=== PATIENT | female | born 1950 | race Caucasian/White ===

== ENCOUNTER 2022-04-18 20:17 | Emergency (ER) | payer MEDICARE ==
[2022-04-18] MEDS ORDERED: Lidocaine 1% 5 ML VIAL INJECT ONE (20:32)
[2022-04-18] MEDS ORDERED: Diphtheria,Pertussis(Acell),Tetanus Vaccine 0.5 ML Syringe IM ONE (21:00)
[2022-04-18] MEDS ORDERED: Bacitracin/Neomycin/Polymyxin B Oint 0.9 GM U/D Packet TOP ONE (21:10)
[2022-04-19] MEDS ORDERED: Bacitracin Oint 28.35 GM Tube TOP SCH (08:00)
== END 2022-04-18 21:23 | disposition home or self-care (01) ==
LOC: CC.ED 20:17
DX: S61.217A Laceration without foreign body of left little finger without damage to nail, initial encounter (principal); W25.XXXA Contact with sharp glass, initial encounter; Z23 Encounter for immunization
CPT/HCPCS: 12001; 90471; 90715; 99282-25; 99283; A9270-GY